=== PATIENT | male | born 1965 | race American Indian/Alaskan Native ===

== ENCOUNTER 2019-06-12 07:26 | Inpatient (IN) | payer BC ==
[2019-06-12 08:18] LABS: Basophils % (Auto) 0.6 % (0.0-1.8); Eosinophils # (Auto) 0.1 K/mm3 (0.0-0.4); Eosinophils % (Auto) 2.2 % (0.0-4.3); Hematocrit 39.4 % (35.5-45.6); Hemoglobin 13.4 gm/dl (11.8-15.2); Lymphocytes % (Auto) 24.9 % (13.4-35.0); Mean Corpuscular HGB Conc 34 % (32-34); Mean Corpuscular Volume 95 fl (84-94); Monocytes # (Auto) 0.3 K/mm3 (0.0-0.8); Platelet Count 210 K/mm3 (140-440); Red Blood Count 4.16 M/mm3 (3.65-5.03); Red Cell Distribution Width 14.4 % (13.2-15.2)
--- NOTE | 2019-06-12 08:29 | Emergency Department Report ---
ED Dizziness HPI - General Chief Complaint: Dizziness Stated Complaint: BRADYCARDIA Time Seen by Provider: 06/12/19 08:19 Source: EMS Mode of arrival: Ambulatory Limitations: No Limitations - History of Present Illness Initial Comments: 53-year-old male with no past medical history presents to ED by EMS. Patient states he awoke this morning, got up to go to the bathroom, and experienced dizziness, nausea and vomiting. Patient states he felt fine yesterday, went to bed at approx 11pm and was normal. Patient denies any chest pain, shortness of breath, abdominal pain, fever. PCP: Dr Jyoti Burnett MD Complaint: dizziness -: This morning Timing: awoke with symptoms Description: "room spinning" History of Same: No History of Trauma: No Severity: moderate Improves With: remaining still, other (keeping eyes closed) Worsens With: movement, position, other (opening eyes) Associated Symptoms: denies: chest pain, fever/chills, shortness of breath, weakness - Related Data Allergies Allergy/AdvReac Type Severity Reaction Status Date / Time No Known Allergies Allergy Unverified 06/12/19 07:50 ED Review of Systems ROS: Stated complaint: BRADYCARDIA Other details as noted in HPI Comment: All other systems reviewed and negative Constitutional: denies: chills, fever Respiratory: denies: shortness of breath Cardiovascular: denies: chest pain Gastrointestinal: nausea, vomiting. denies: abdominal pain, diarrhea Neurological: headache, vertigo ED Past Medical Hx - Past Medical History Previous Medical History?: No - Surgical History Past Surgical History?: Yes Additional Surgical History: shoulder - Social History Smoking Status: Current Some Day Smoker Substance Use Type: Alcohol ED Physical Exam - General Limitations: No Limitations General appearance: alert, in no apparent distress - Head Head exam: Present: atraumatic, normocephalic - Eye Eye exam: Present: normal appearance, PERRL, EOMI - ENT ENT exam: Present: mucous membranes moist - Neck Neck exam: Present: normal inspection - Respiratory Respiratory exam: Present: normal lung sounds bilaterally. Absent: respiratory distress - Cardiovascular Cardiovascular Exam: Present: normal rhythm, bradycardia - GI/Abdominal GI/Abdominal exam: Present: soft. Absent: distended, tenderness - Extremities Exam Extremities exam: Present: normal inspection - Neurological Exam Neurological exam: Present: alert, oriented X3, CN II-XII intact, normal gait, other (NIHSS= 0). Absent: motor sensory deficit - Psychiatric Psychiatric exam: Present: normal affect, normal mood - Skin Skin exam: Present: warm, dry, intact, normal color ED Course Vital Signs 06/12/19 06/12/19 06/12/19 07:34 07:45 07:49 Temperature 97.9 F Pulse Rate 54 L 55 L Respiratory 16 11 L 18 Rate Blood Pressure 207/105 O2 Sat by Pulse 99 100 Oximetry 06/12/19 06/12/19 06/12/19 08:01 08:15 08:45 Temperature Pulse Rate 53 L 56 L 55 L Respiratory 18 12 20 Rate Blood Pressure 191/83 175/77 189/83 O2 Sat by Pulse 99 100 96 Oximetry 06/12/19 06/12/19 06/12/19 09:08 09:12 09:15 Temperature Pulse Rate 52 L 53 L 53 L Respiratory 21 20 20 Rate Blood Pressure 162/80 162/80 152/81 O2 Sat by Pulse 95 94 94 Oximetry 06/12/19 06/12/19 06/12/19 09:21 09:23 09:25 Temperature Pulse Rate 53 L 52 L 52 L Respiratory 22 21 20 Rate Blood Pressure 146/77 146/77 146/77 O2 Sat by Pulse 95 94 95 Oximetry 06/12/19 06/12/19 06/12/19 09:27 09:28 09:29 Temperature Pulse Rate 54 L 53 L 54 L Respiratory 23 21 21 Rate Blood Pressure 146/77 146/77 146/77 O2 Sat by Pulse 95 95 94 Oximetry 06/12/19 06/12/19 06/12/19 09:31 09:33 09:34 Temperature Pulse Rate 53 L 56 L 54 L Respiratory 21 20 21 Rate Blood Pressure 146/77 144/77 144/77 O2 Sat by Pulse 94 94 95 Oximetry 06/12/19 06/12/19 06/12/19 09:35 09:37 09:39 Temperature Pulse Rate 54 L 54 L 57 L Respiratory 20 21 22 Rate Blood Pressure 144/77 144/77 144/77 O2 Sat by Pulse 95 96 94 Oximetry 06/12/19 06/12/19 06/12/19 09:41 09:43 09:45 Temperature Pulse Rate 57 L 56 L 55 L Respiratory 24 22 21 Rate Blood Pressure 144/77 144/77 146/77 O2 Sat by Pulse 95 93 94 Oximetry 06/12/19 06/12/19 06/12/19 09:47 09:49 09:51 Temperature Pulse Rate 55 L 58 L 54 L Respiratory 21 23 19 Rate Blood Pressure 146/77 150/78 150/78 O2 Sat by Pulse 96 95 94 Oximetry 06/12/19 06/12/19 06/12/19 09:53 09:55 09:56 Temperature Pulse Rate 57 L 63 60 Respiratory 23 14 13 Rate Blood Pressure 150/78 157/81 157/81 O2 Sat by Pulse 95 95 95 Oximetry 06/12/19 06/12/19 06/12/19 09:57 09:59 10:00 Temperature Pulse Rate 56 L 62 58 L Respiratory 19 15 16 Rate Blood Pressure 157/81 157/81 174/83 O2 Sat by Pulse 97 98 99 Oximetry 06/12/19 06/12/19 10:01 10:02 Temperature Pulse Rate 61 62 Respiratory 11 L 14 Rate Blood Pressure 174/83 161/88 O2 Sat by Pulse 89 99 Oximetry ED Medical Decision Making - Lab Data Result diagrams: 06/12/19 08:09 06/12/19 08:09 - EKG Data -: EKG Interpreted by Mt EKG shows normal: sinus rhythm, axis, intervals, QRS complexes, ST-T waves Rate: bradycardia - EKG Data Interpretation: no acute changes - Radiology Data Radiology results: report reviewed, image reviewed - Medical Decision Making 53-year-old male who awoke with dizziness, nausea vomiting this morning. Patient was initially hypertensive, however blood pressure improved with medication administration. On exam, patient had no focal neuro deficits. CT head negative for any abnormalities. Patient exhibited signs of likely vertigo, some meclizine was given. Patient reported improvement of symptoms however not completely resolved, so will admit patient for further management. - Differential Diagnosis ischemic CVA, hemorrhageic CVA, benign positional vertigo Critical care attestation.: If time is entered above; I have spent that time in minutes in the direct care of this critically ill patient, excluding procedure time. ED Disposition Clinical Impression: Dizziness Disposition: - OP ADMIT IP TO THIS HOSP Is pt being admited?: Yes Condition: Stable [facility] [Primary Care Provider] - 3-5 Days
[2019-06-12 08:40] LABS: BUN/Creatinine Ratio 10; Blood Urea Nitrogen 8 mg/dL (9-20); Calcium 8.8 mg/dL (8.4-10.2); Hemolysis Index 24
--- NOTE | 2019-06-12 09:10 | Cat Scan Report ---
CT HEAD WITHOUT CONTRAST INDICATION : Dizziness. TECHNIQUE: Axial, coronal and sagittal CT imaging was performed from the skull apex through the skul l base without contrast. All CT scans at this location are performed using CT dose reduction for ALA RA by means of automated exposure control. COMPARISON: None available. FINDINGS: PARENCHYMA: No mass, midline shift, hemorrhage, extraaxial collection or acute territorial infarctio n. VENTRICLES: Symmetric and normal in size. SOFT TISSUES: Soft tissues including the orbits appear normal. BONES: No acute osseous abnormality. SINUSES: No significant abnormality of the visualized sinuses/mastoid air cells. ADDITIONAL FINDINGS: None. IMPRESSION: No acute intracranial abnormality. Signer Name: Patrick Frias MD Signed: 06/12/2019 9:06 AM Workstation Name: [id number]
[2019-06-12] MEDS ORDERED: ANTIVERT PO ONE (10:13)
--- NOTE | 2019-06-12 13:55 | History and Physical Report ---
History of Present Illness Chief complaint: I feel weak History of present illness: 53 YO Male with Obesity, Nicotine Dependence presents to ED for evaluation. Pt states that he was in his usual state of health at bedtime around 2300hrs. Pt states that he awoke from sleep this morning and was ambulating to the bathroom and experienced dizziness, weakness, and difficulty speaking, Headache, and Nausea. EMS notified, and upon arrival the patient was found to be in distress and transported to [facility]. Pt seen and evaluated in ED and found to have symptoms consistent with CVA. Pt admitted to telemetry. Neurology consulted in ED. PT denies fever, chills, CP, Palpitations, Trauma, BRBPR, Unintentional weight loss, productive cough, or recent ill contacts. Past History Past Medical History: other (Obesity) Past Surgical History: No surgical history, Other (reviewed) Social history: smoking Family history: hypertension Medications and Allergies Allergies Allergy/AdvReac Type Severity Reaction Status Date / Time No Known Allergies Allergy Unverified 06/12/19 07:50 Review of Systems Constitutional: no weight loss, no weight gain, no fever, no chills, no sweats Ears, nose, mouth and throat: no ear pain, no ear discharge, no tinnitis, no decreased hearing, no nose pain, no nasal congestion, no nasal discharge Cardiovascular: no chest pain, no orthopnea, no rapid/irregular heart beat, no edema, no syncope, no lightheadedness Respiratory: no cough, no cough with sputum, no hemoptysis, no shortness of breath Gastrointestinal: no abdominal pain, no nausea, no vomiting, no constipation, no change in bowel habits, no hematemesis Genitourinary Male: no dysuria, no hematuria, no flank pain, no discharge, no urinary frequency, no urinary hesitancy, no nocturia, no incontinence Rectal: no pain, no incontinence, no bleeding Musculoskeletal: no neck stiffness, no neck pain, no shooting arm pain, no arm numbness/tingling, no leg numbness/tingling Integumentary: no rash, no pruritis, no redness, no sores, no wounds, no jaundice Neurological: weakness, lack of coordination, headaches, aphasia, no transient paralysis, no paralysis, no parathesias, no numbness, no tingling, no seizures, no convulsions, no change in speech, no change in mentation, no confusion Psychiatric: no anxiety, no memory loss, no change in sleep habits, no sleep disturbances, no insomnia, no hypersomnia, no change in appetite, no change in libido, no suicidal ideation Endocrine: no cold intolerance, no heat intolerance, no polyphagia, no excessive thirst, no polydipsia, no polyuria, no nocturia, no excessive sweating Hematologic/Lymphatic: no easy bruising, no easy bleeding, no lymphadenopathy, no lymphedema Allergic/Immunologic: no urticaria, no allergic rhinitis, no wheezing, no persistent infections Exam - Constitutional Vitals: Temp Pulse Resp BP Pulse Ox 97.9 F 62 14 161/88 99 06/12/19 07:34 06/12/19 10:02 06/12/19 10:02 06/12/19 10:02 06/12/19 10:02 General appearance: Present: mild distress - EENT Eyes: Present: PERRL ENT: hearing intact, clear oral mucosa - Neck Neck: Present: supple, normal ROM - Respiratory Respiratory effort: normal Respiratory: bilateral: CTA - Cardiovascular Heart Sounds: Present: S1 & S2. Absent: rub, click - Extremities Extremities: pulses symmetrical, No edema Peripheral Pulses: within normal limits - Abdominal General gastrointestinal: Present: soft, non-tender, non-distended, normal bowel sounds Male genitourinary: Present: normal - Integumentary Integumentary: Present: clear, warm, dry - Musculoskeletal Musculoskeletal: gait normal, strength equal bilaterally - Psychiatric Psychiatric: appropriate mood/affect, intact judgment & insight - Neurologic Neurologic: CNII-XII intact, moves all extremities Results - Labs CBC & Chem 7: 06/12/19 08:09 06/12/19 08:09 Labs: Abnormal lab results 06/12/19 06/12/19 Range/Units 08:09 08:09 WBC 4.1 L (4.5-11.0) K/mm3 MCV 95 H (84-94) [place] % (Auto) 8.0 H (0.0-7.3) % Lymph # 1.0 L (1.2-5.4) K/mm3 BUN 8 L (9-20) mg/dL Glucose 168 H (75-100) mg/dL Assessment and Plan - Patient Problems (1) CVA (cerebral vascular accident) Current Visit: Yes Status: Acute Qualifiers: Laterality of affected vessel: unspecified Plan to address problem: Stroke Protocol: Admit to telemetry, CT head, Neuro check, MRI Brain, MRA Brain, Echo, Carotid doppler, PT/OT/Speech, lipid panel, statin therapy, Neurology consulted. (2) Obesity (BMI 30.0-34.9) Current Visit: Yes Status: Acute Plan to address problem: balanced diet, increased physical activity, (3) Nicotine dependence unspecified, with withdrawal Current Visit: Yes Status: Acute Qualifiers: Nicotine product type: cigarettes Qualified Code(s): F17.213 - Nicotine dependence, cigarettes, with withdrawal Plan to address problem: Smoking cessation counseling, supportive (4) DVT prophylaxis Current Visit: Yes Status: Acute Plan to address problem: SCD to BLE while in bed, supportive care.
[2019-06-12] MEDS ORDERED: SODIUM CHLORIDE FLUSH SYRINGE 10 ML IV PRN (13:56)
[2019-06-12] MEDS ORDERED: REGLAN PO PRN (13:56)
[2019-06-12] MEDS ORDERED: TYLENOL PO PRN (13:56)
[2019-06-12] MEDS ORDERED: MILK OF MAGNESIA PO PRN (13:56)
[2019-06-12] MEDS ORDERED: ZOFRAN IV PRN (13:56)
[2019-06-12] MEDS ORDERED: PHENERGAN PR PRN (13:56)
[2019-06-12] MEDS ORDERED: PROVENTIL IH PRN (13:56)
[2019-06-12] MEDS ORDERED: DULCOLAX PR PRN (13:56)
--- NOTE | 2019-06-12 16:19 | Vascular Lab Report ---
DUPLEX DOPPLER ULTRASOUND CAROTID, BILATERAL INDICATION: stroke severe dizziness FINDINGS: Right Carotid: Small amount of plaque is seen within the right ICA and carotid bifurcation. Right CCA velocity: 69 cm/sec. Right ICA peak systolic velocity: 69 cm/sec. Systolic velocity ratio: 1.0. Spectral broadening: None. Right Vertebral Artery: Antegrade flow. Left Carotid: Small amount of plaque present within the left ICA. Left CCA velocity: 79 cm/sec. Left ICA peak systolic velocity: 72 cm/sec. Systolic velocity ratio: 0.92. Spectral broadening: None. Left Vertebral Artery: Antegrade flow. IMPRESSION: 1. Right Internal Carotid Artery: Less than 50% diameter stenosis using criteria similar to NASCET. 2. Left Internal Carotid Artery: Less than 50% diameter stenosis using criteria similar to NASCET. 3. Small amount of plaque bilaterally. Signer Name: Bhumika Gao MD Signed: 06/12/2019 4:14 PM Workstation Name: [id number]
--- NOTE | 2019-06-12 18:24 | Progress Note ---
Subjective Date of service: 06/12/19 Interval history: checked the brain CT and appears to me WNL's will check labs and other imaging studies Tnaks Objective - Vital Sign Vital Signs - 12hr 06/12/19 06/12/19 06/12/19 07:34 07:45 07:49 Temperature 97.9 F Pulse Rate 54 L 55 L Respiratory 16 11 L 18 Rate Blood Pressure 207/105 O2 Sat by Pulse 99 100 Oximetry 06/12/19 06/12/19 06/12/19 08:01 08:15 08:45 Temperature Pulse Rate 53 L 56 L 55 L Respiratory 18 12 20 Rate Blood Pressure 191/83 175/77 189/83 O2 Sat by Pulse 99 100 96 Oximetry 06/12/19 06/12/19 06/12/19 09:08 09:12 09:15 Temperature Pulse Rate 52 L 53 L 53 L Respiratory 21 20 20 Rate Blood Pressure 162/80 162/80 152/81 O2 Sat by Pulse 95 94 94 Oximetry 06/12/19 06/12/19 06/12/19 09:21 09:23 09:25 Temperature Pulse Rate 53 L 52 L 52 L Respiratory 22 21 20 Rate Blood Pressure 146/77 146/77 146/77 O2 Sat by Pulse 95 94 95 Oximetry 06/12/19 06/12/19 06/12/19 09:27 09:28 09:29 Temperature Pulse Rate 54 L 53 L 54 L Respiratory 23 21 21 Rate Blood Pressure 146/77 146/77 146/77 O2 Sat by Pulse 95 95 94 Oximetry 06/12/19 06/12/19 06/12/19 09:31 09:33 09:34 Temperature Pulse Rate 53 L 56 L 54 L Respiratory 21 20 21 Rate Blood Pressure 146/77 144/77 144/77 O2 Sat by Pulse 94 94 95 Oximetry 06/12/19 06/12/19 06/12/19 09:35 09:37 09:39 Temperature Pulse Rate 54 L 54 L 57 L Respiratory 20 21 22 Rate Blood Pressure 144/77 144/77 144/77 O2 Sat by Pulse 95 96 94 Oximetry 06/12/19 06/12/19 06/12/19 09:41 09:43 09:45 Temperature Pulse Rate 57 L 56 L 55 L Respiratory 24 22 21 Rate Blood Pressure 144/77 144/77 146/77 O2 Sat by Pulse 95 93 94 Oximetry 06/12/19 06/12/19 06/12/19 09:47 09:49 09:51 Temperature Pulse Rate 55 L 58 L 54 L Respiratory 21 23 19 Rate Blood Pressure 146/77 150/78 150/78 O2 Sat by Pulse 96 95 94 Oximetry 06/12/19 06/12/19 06/12/19 09:53 09:55 09:56 Temperature Pulse Rate 57 L 63 60 Respiratory 23 14 13 Rate Blood Pressure 150/78 157/81 157/81 O2 Sat by Pulse 95 95 95 Oximetry 06/12/19 06/12/19 06/12/19 09:57 09:59 10:00 Temperature Pulse Rate 56 L 62 58 L Respiratory 19 15 16 Rate Blood Pressure 157/81 157/81 174/83 O2 Sat by Pulse 97 98 99 Oximetry 06/12/19 06/12/19 06/12/19 10:01 10:02 14:50 Temperature Pulse Rate 61 62 Respiratory 11 L 14 Rate Blood Pressure 174/83 161/88 161/88 O2 Sat by Pulse 89 99 99 Oximetry 06/12/19 06/12/19 06/12/19 15:01 15:37 15:43 Temperature 97.9 F Pulse Rate 62 52 L Respiratory 18 Rate Blood Pressure 163/82 O2 Sat by Pulse 97 97 97 Oximetry 06/12/19 06/12/19 06/12/19 15:48 15:54 16:04 Temperature Pulse Rate Respiratory Rate Blood Pressure 163/82 163/82 163/82 O2 Sat by Pulse 100 94 Oximetry 06/12/19 16:11 Temperature Pulse Rate Respiratory Rate Blood Pressure 163/82 O2 Sat by Pulse 94 Oximetry - Laboratory Findings CBC and BMP: 06/12/19 08:09 06/12/19 08:09 Abnormal Lab Findings: Abnormal Labs 06/12/19 06/12/19 08:09 08:09 WBC 4.1 L MCV 95 H [place] % (Auto) 8.0 H Lymph # 1.0 L BUN 8 L Glucose 168 H
[2019-06-13 09:40] VITALS: BP 140/80
--- NOTE | 2019-06-13 09:40 | Progress Note ---
Subjective Date of service: 06/13/19 Interval history: alert and doing well he is neuro inatct the vertigo is no longer present but pulse rate is 50 explained dx to patient the careful review of the CT shows nop sinus problems Objective - Vital Sign Vital Signs - 12hr 06/12/19 06/12/19 06/12/19 22:28 23:08 23:43 Temperature 97.9 F Pulse Rate 51 L 52 L Respiratory 20 18 Rate Blood Pressure 140/69 O2 Sat by Pulse 98 97 Oximetry 06/13/19 06/13/19 06/13/19 04:07 05:16 09:01 Temperature 97.7 F Pulse Rate 52 L 50 L Respiratory 17 18 Rate Blood Pressure 128/67 O2 Sat by Pulse 96 Oximetry - Laboratory Findings CBC and BMP: 06/12/19 08:09 06/12/19 08:09 Abnormal Lab Findings: Abnormal Labs 06/12/19 06/12/19 08:09 08:09 WBC 4.1 L MCV 95 H [place] % (Auto) 8.0 H Lymph # 1.0 L BUN 8 L Glucose 168 H
--- NOTE | 2019-06-13 09:50 | Discharge Summary ---
Providers - Providers Date of Admission: 06/12/19 13:56 Date of discharge: 06/13/19 Attending physician: KRISTIAN STEWART 06/12/19 13:56 Occupational Therapy Evaluate and Treat [CONS] Routine Comment: Reason For Exam: Neuro deficits Physical Therapy Evaluation and Treat [CONS] Routine Comment: Reason For Exam: Neuro deficits 06/12/19 14:27 Consult to Physician [CONS] Routine Comment: Consulting Provider: HARMONY NICOLE Physician Instructions: Reason For Exam: cva Primary care physician: [facility] Hospitalization Reason for admission: vertigo Condition: Stable Hospital course: 53-year-old male with no past medical history presented to ED by EMS with complaints of dizziness. 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 Patient states he had no symptoms prior to that and went to bed without issues. Patient reports no dysphasia or dysarthria. Patient deny any lateralizing signs or symptoms. The patient's presentation is not consistent with CVA. Neurology saw the patient in consultation and agreed that patient most likely had BPV. The patient had improvement of vertigo symptomatology with meclizine. I discussed case with Dr. Nicole stated the patient could discharge home and follow-up with him as an outpatient. Carotid Dopplers and CT scan within normal limits. Patient is felt to have received maximal hospital benefit for discharge. Patient may discharge after echocardiogram. Dedicated discharge time 32 minutes. Disposition: - TO HOME OR SELFCARE Time spent for discharge: 32 - Discharge Diagnoses (1) BPV (benign positional vertigo) Status: Acute (2) Nicotine dependence unspecified, with withdrawal Status: Acute Qualifiers: Nicotine product type: cigarettes Qualified Code(s): F17.213 - Nicotine dependence, cigarettes, with withdrawal (3) Obesity (BMI 30.0-34.9) Status: Acute Core Measure Documentation - Palliative Care Palliative Care/ Comfort Measures: Not Applicable - Core Measures Any of the following diagnoses?: none Exam - Constitutional Vitals: Temp Pulse Resp BP Pulse Ox 97.9 F 52 L 18 140/80 97 06/13/19 08:11 06/13/19 08:11 06/13/19 09:01 06/13/19 08:11 06/13/19 08:11 General appearance: Present: no acute distress, well-nourished - EENT Eyes: Present: PERRL ENT: hearing intact, clear oral mucosa - Neck Neck: Present: supple, normal ROM - Respiratory Respiratory effort: normal Respiratory: bilateral: CTA - Cardiovascular Heart Sounds: Present: S1 & S2. Absent: rub, click - Extremities Extremities: pulses symmetrical, No edema Peripheral Pulses: within normal limits - Abdominal General gastrointestinal: Present: soft, non-tender, non-distended, normal bowel sounds Male genitourinary: Present: normal - Integumentary Integumentary: Present: clear, warm, dry - Musculoskeletal Musculoskeletal: gait normal, strength equal bilaterally - Psychiatric Psychiatric: appropriate mood/affect, intact judgment & insight - Neurologic Neurologic: CNII-XII intact, moves all extremities Plan Activity: advance as tolerated Weight Bearing Status: Weight Bear as Tolerated Diet: regular Follow up with: [facility] MD ITZ [Primary Care Provider] - 3-5 Days HARMONY NICOLE MD [Staff Physician] - 7 Days Prescriptions: Meclizine [Antivert] 25 mg PO TID PRN #90 tablet PRN Reason: Vertigo
[2019-06-13] MEDS ORDERED: ASPIRIN PO SCH (10:00)
[2019-06-13 10:56] LABS: Free T4 (Free Thyroxine) 0.86 ng/dL (0.76-1.46)
--- NOTE | 2019-06-14 05:42 | Consultation ---
HISTORY OF PRESENT ILLNESS: This 53-year-old black male presented to the Emergency Room of [facility] on 06/12/2019. This patient presented to the hospital with acute onset of severe vertigo, difficulty with walking and problems with his gait. He apparently got up to go to the bathroom. He had nausea and vomiting. He had gone to bed feeling well the day before, was taking no medication. When he presented to the Emergency Room, he was bradycardic, has no known allergies. His pulse rate was in the range of 52-53 on presentation with a blood pressure of 162/80. The patient's evaluation, in addition, showed laboratories were white blood count is 4100. He had a high monocyte count of 8%. He had a glucose of 168, a potassium of 4.3, sodium of 143. The patient's CT scan of the head was reviewed by me. I did not see any abnormalities with his external or internal auditory meatus. The sinuses that were visualized are within normal limits. There is no fluid within the ethmoids, turbinates, sphenoid sinus, frontal sinuses. There are no such soft tissue masses. Brain itself was within normal limits. I see no evidence of any abnormalities in the jacobs and white matter. In addition, the formal review of the CT scan by the radiologist would confirm my interpretation. PHYSICAL EXAMINATION: VITAL SIGNS: On my examination of the patient, at this point, his blood pressure is 128/67, pulse rate is 52, temperature is 97 degrees, respiratory rate is 17, O2 sat is 96%. NEUROLOGIC: Cranial nerves are intact. He has absolutely no nystagmus. His ocular movements are full. He is feeling well at present time. His extraocular movements are full. No ataxia is present. Finger-nose movements are performed normally. IMPRESSION: This patient probably had benign labyrinthitis, but curious is that his pulse rate is still low in the range of 50. I am not sure that I can easily explain this, but he is a borderline diabetic. I would recommend getting a thyroid profile on him to further assess this. I think that his vertigo at this point is almost completely gone. I would not further feel workup of this is necessary at this point. I will follow the patient with you. JOB# [id number] JERSON/NTS
== END 2019-06-13 12:29 | disposition home or self-care (01) | DRG 149 ==
LOC: ED 07:26 → 4A 13:56
PROVIDERS: ADMIT Internal Medicine; ATTEND Hospitalist
DX: H81.10 Benign paroxysmal vertigo, unspecified ear (principal); F17.213 Nicotine dependence, cigarettes, with withdrawal; E66.9 Obesity, unspecified; Z68.36 Body mass index [BMI] 36.0-36.9, adult; Z82.49 Family history of ischemic heart disease and other diseases of the circulatory system; Z71.6 Tobacco abuse counseling; Z72.89 Other problems related to lifestyle
CPT/HCPCS: 36415; 70450; 80048; 84439; 84443; 84484; 85025; 93005; 93010; 93880; G0378; A9270-GY